=== PATIENT | male | born 1990 | race Caucasian/White ===

== ENCOUNTER 2019-03-19 18:03 | Emergency (ER) | payer OTHER ==
[~2019-03-19] VITALS: Ht 172.7 cm; Wt 56.7 kg
[2019-03-19] MEDS ORDERED: NAPROSYN500 M1 PO (18:33)
[2019-03-19 18:38] VITALS: BP 114/61
== END 2019-03-19 18:39 | disposition home or self-care (01) ==
LOC: M.ERS 18:03
DX: M54.5 Low back pain (principal)